=== PATIENT | female | born 1995 | race Caucasian/White ===

== ENCOUNTER 2018-04-17 11:00 | Inpatient (IN) | payer OTHER ==
[2018-04-17] MEDS ORDERED: SODIUM PHOSPHATE/NA BIPHOS 133 ML ENEMA RC ONE (12:45)
[2018-04-17] MEDS ORDERED: AMPICILLIN - 2 GM in SODIUM CHLORIDE 100 ML IVPB ONE (14:35)
[2018-04-17] MEDS ORDERED: AMPICILLIN SODIUM 2 GM VIAL ONE (14:39)
[2018-04-17 15:12] VITALS: BMI 33.3
[2018-04-17 15:44] LABS: BASO % 0.2 % (0-2.0); EOS % 0.4 % (0-4.5); HEMATOCRIT 31.4 % (32.4-45.2); HEMOGLOBIN 9.8 GM/dL (10.7-15.3); LYMPH % 13.7 % (8-40); MCH 22.1 pg (25.7-33.7); MCHC 31.2 g/dl (32.0-36.0); MEAN CELL VOLUME 70.7 fl (80-96); MEAN PLT VOLUME 8.9 fl (7.5-11.1); NEUT % 79.7 % (42.8-82.8); PLATELET COUNT 216 K/MM3 (134-434); RBC 4.45 M/mm3 (3.60-5.2); RDW 20.3 % (11.6-15.6); WHITE BLOOD COUNT 9.6 K/mm3 (4.0-10.0)
[2018-04-17 16:01] LABS: ANION GAP 13 MMOL/L (8-16); BLOOD UREA NITROGEN 8 mg/dL (7-18); CALCIUM 8.6 mg/dL (8.5-10.1); CHLORIDE 105 mmol/L (98-107); CO2 21 mmol/L (21-32); CREATININE 0.4 mg/dL (0.55-1.3); GLUCOSE,RANDOM 85 mg/dL (74-106); POTASSIUM 3.6 mmol/L (3.5-5.1); SODIUM 139 mmol/L (136-145)
[2018-04-17 16:04] LABS: INR 0.93 (0.83-1.09)
[2018-04-17 16:07] LABS: ACTIVATED PTT 25.1 SECONDS (25.2-36.5)
[2018-04-17] MEDS ORDERED: DEXTROSE 5%-LACTATED RINGERS 1,000 ML IV SCH (17:00)
[2018-04-17] MEDS ORDERED: PROMETHAZINE HCL 25 MG/1 ML VIAL ONE (17:20)
[2018-04-17] MEDS ORDERED: BUTORPHANOL TARTRATE 1 MG/ML VIAL ONE ×2 (17:20)
--- NOTE | 2018-04-17 17:31 | HP ---
Past Medical History - Admission Chief Complaint: contractions History of Present Illness: 23yo LMP 06/25/17 EDC 04/17/18 by 10 week u/s SIUP at 40 weeks presents with c/o ctx. PNC at [address] uncomplicated Pt A+/RI/Hep B sag negative/quantiferon negative/HIV negative/GBS positive History Source: Patient Limitations to Obtaining History: No Limitations - Past Medical History SR. CONSULTANT: No: Alzheimer's, CVA, Dementia, Migraine, Multiple Sclerosis, Peripheral Neuropathy, Parkinson's, Seizure, Syncope, TIA, Vertigo, Other Cardiovascular: No: AFIB, Aneurysm, Aortic Insufficiency, Aortic Stenosis, CAD, CHF, Deep Vein Thrombosis, HTN, Hyperlipdemia, NV, Mitral Insufficiency, Mitral Stenosis, Murmur, Pulmonary Hypertension, Other Pulmonary: No: Asthma, Bronchitis, Cancer, COPD, O2 Dependent, Pneumonia, Previously Intubated, Pulmonary Embolus, Pulmonary Fibrosis, Sleep Apnea, Other Gastrointestinal: No: Ascites, Cancer, Constipation, Crohn's Disease, Diverticulitis, Diverticulosis, Esophageal Varices, Gastritis, GERD, GI Bleed, Hemorrhoids, Hiatal Hernia, Inflamatory Bowel Disease, Irritable Bowel Disease, Pancreatitis, Peptic Ulcer Disease, Ulcerative Colitis, Other Hepatobiliary: No: Cirrhosis, Cholelithiasis, Cholecystitis, Choledocholithiasis , Hepatitis A, Hepatitis B, Hepatitis C, Other Renal/: No: Renal Failure, Renal Inusuff, BPH, Cancer, Hematuria, Hemodialysis , Neurogenic Bladder, Renal Calculi, UTI, Other ...: 1 ...Para: 0 ...Term: 0 ...: 0 ...Spon : 0 ...Induced : 0 ...Multiple Gestation: 0 ...LMP: 06/25/17 ... Weeks Gestation by Dates: 40 ...EDC by Sono: 04/17/18 Heme/Onc: Yes: Anemia - Past Surgical History Past Surgical History: Yes: None Hx Myomectomy: No Hx Transabdominal Cerclage: No - Smoking History Smoking history: Never smoked Have you smoked in the past 12 months: No - Alcohol/Substance Use Hx Alcohol Use: No Home Medications - Allergies Allergies/Adverse Reactions: Allergies Allergy/AdvReac Type Severity Reaction Status Date / Time No Known Allergies Allergy Verified 04/17/18 12:06 - Home Medications Home Medications: Ambulatory Orders Ferrous Sulfate 325 mg PO DAILY 02/21/18 Family Disease History - Family Disease History Family History: Unremarkable Review of Systems - Review of Systems Constitutional: reports: No Symptoms Eyes: reports: No Symptoms HENT: reports: No Symptoms Neck: reports: No Symptoms Cardiovascular: reports: No Symptoms Respiratory: reports: No Symptoms Gastrointestinal: reports: No Symptoms Genitourinary: reports: Pain Breasts: reports: No Symptoms Reported Musculoskeletal: reports: No Symptoms Integumentary: reports: No Symptoms Neurological: reports: No Symptoms Endocrine: reports: No Symptoms Hematology/Lymphatic: reports: No Symptoms Psychiatric: reports: No Symptoms Physical Exam - Maternity Vital Signs: Vital Signs Temperature 98.2 F 04/17/18 17:07 Pulse Rate 95 H 04/17/18 17:07 Respiratory Rate 18 04/17/18 17:07 Blood Pressure 123/65 04/17/18 17:07 O2 Sat by Pulse Oximetry (%) Constitutional: Yes: Well Nourished, No Distress, Calm Eyes: Yes: WNL, Conjunctiva Clear, EOM Intact HENT: Yes: WNL, Atraumatic, Normocephalic Neck: Yes: WNL, Supple, Trachea Midline Cardiovascular: Yes: WNL, Regular Rate and Rhythm Breast(s): Yes: WNL - Abdominal Exam/OB Fundal Height: 40 Number of Fetuses: Single Presentation: Vertex Contractions: Yes Regularity: Regular Intensity: Mild/Mod Monitor Mode: External Heart Rate (range): 125 mod priscilla +accels no decels Category: I Accelerations: Uniform Decelerations: None - Vaginal Exam/OB Vaginal Bleediing: No Dilatation (cm): 3 Effacement (%): 80 Amniotic Membrane Status: Intact Presentation: Vertex/Position - Physical Exam Musculoskeletal: Yes: WNL Extremities: Yes: WNL Integumentary: Yes: WNL ...Motor Strength: WNL Psychiatric: Yes: WNL - Labs Lab Results: CBC, BMP 04/17/18 15:20 04/17/18 15:20 Hemorrhage Risk Assessment - Risk Factors Medium Risk Factors: Yes: None High Risk Factors: Yes: None Risk Score: 1 Risk Level: Medium Risk Problem List - Problems (1) Spontaneous onset of labor Assessment/Plan: 23yo at 40 weeks in early labor, GBS positive, EFW 8 1/2lbs admit to labor and delivery pain management as needed penicillin for gbs prophylaxis expectant management for now; early labor at term; Dr. Santiago Code(s): [id number] -
[2018-04-17] MEDS ORDERED: BUTORPHANOL TARTRATE 1 MG/ML VIAL IVPB ONE (17:35)
[2018-04-17] MEDS ORDERED: PROMETHAZINE HCL 25 MG/1 ML VIAL IVPUSH ONE (17:35)
[2018-04-17] MEDS ORDERED: ELECTROLYTE-148 SOLN 1,000 ML IV SCH (17:45)
[2018-04-17] MEDS ORDERED: AMPICILLIN SODIUM 1 GM VIAL ONE ×2 (18:40→22:22)
[2018-04-17] MEDS: AMPICILLIN - 1 GM in SODIUM CHLORIDE 100 ML IVPB SCH ×2 (18:42→22:30)
[2018-04-18] MEDS ORDERED: AMPICILLIN SODIUM 1 GM VIAL ONE ×2 (02:16→06:32)
[2018-04-18] MEDS: AMPICILLIN - 1 GM in SODIUM CHLORIDE 100 ML IVPB SCH ×2 (02:30→06:30)
[2018-04-18] MEDS ORDERED: BUTORPHANOL TARTRATE 1 MG/ML VIAL IVPUSH ONE (03:00)
[2018-04-18] MEDS ORDERED: PROMETHAZINE HCL 25 MG/1 ML VIAL IVPUSH ONE (03:00)
[2018-04-18] MEDS ORDERED: OXYTOCIN 30 UNITS in 0.9% NS 30 UNIT/500 ML INFUS.BAG IVPB ONE (03:35)
[2018-04-18] MEDS ORDERED: OXYTOCIN 30 UNITS in 0.9% NS 30 UNIT/500 ML INFUS.BAG IVPB SCH (04:30)
[2018-04-18 07:18] VITALS: TEMP 98.8
[2018-04-18 08:01] VITALS: BP 105/55; PULSE 94
--- NOTE | 2018-04-18 08:15 | PN ---
Progress Note, Labor Vaginal Exam #1 Labor Exam Time: 07:40 Heart Rate (range): Cat 1 Dilatation: 4 Effacement (%): 80 Amniotic Membrane Status: Intact Presentation: Vertex/Position Station: -2 Remarks: patient admitted jn latent labor. Over the course of 15 hours, she has made no significant progress or transition into active labor. Her FHT has remained Category 1 throughout. She has received 3-4 hours of pitocin, with progress from 3cm to 4cm. Will discharge the patient home to allow for more time for her to transition into active labor and have a better chance of vaginal delivery. she has close follow up in the office within 48 hours.
[2018-04-18] MEDS ORDERED: AMPICILLIN - 1 GM in SODIUM CHLORIDE 100 ML IVPB SCH (10:30)
== END 2018-04-18 09:35 | disposition home or self-care (01) | DRG 566 ==
LOC: JDEL 11:00 → JLDR 14:35
PROVIDERS: ADMIT Obstetrics & Gynecology; ATTEND Obstetrics & Gynecology
DX: O48.0 Post-term pregnancy (principal); Z3A.40 40 weeks gestation of pregnancy; O99.824 Streptococcus B carrier state complicating childbirth
CPT/HCPCS: 36415; 80048; 85025; 85610; 85730; 86593; 86850; 86900; 86901

== ENCOUNTER 2018-04-22 09:35 | Inpatient (IN) | payer OTHER ==
[2018-04-22] MEDS ORDERED: LACTATED RINGERS SOLUTION 1,000 ML/1,000 ML INFUS.BAG IV STA (12:48)
--- NOTE | 2018-04-24 18:33 | HP ---
Past Medical History - Admission Chief Complaint: IOL, postdates History of Present Illness: 23yo @ 41.0wks here for IOL for postdates Here with ctx still. No VB/LOF. +FM. Seen here last week, admitted for latent labor. Received Amp for GBS+ and made no progress even on pitocin after 15 hours; then returned 3 days ago with ctx, 4cm and made no progress after one hour of monitoring. 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: No: Alzheimer's, CVA, Dementia, Migraine, Multiple Sclerosis, Peripheral Neuropathy, Parkinson's, Seizure, Syncope, TIA, Vertigo, Other Cardiovascular: No: AFIB, Aneurysm, Aortic Insufficiency, Aortic Stenosis, CAD, CHF, Deep Vein Thrombosis, HTN, Hyperlipdemia, HI, Mitral Insufficiency, Mitral Stenosis, Murmur, Pulmonary Hypertension, Other Pulmonary: No: Asthma, Bronchitis, Cancer, COPD, O2 Dependent, Pneumonia, Previously Intubated, Pulmonary Embolus, Pulmonary Fibrosis, Sleep Apnea, Other Gastrointestinal: No: Ascites, Cancer, Constipation, Crohn's Disease, Diverticulitis, Diverticulosis, Esophageal Varices, Gastritis, GERD, GI Bleed, Hemorrhoids, Hiatal Hernia, Inflamatory Bowel Disease, Irritable Bowel Disease, Pancreatitis, Peptic Ulcer Disease, Ulcerative Colitis, Other Hepatobiliary: No: Cirrhosis, Cholelithiasis, Cholecystitis, Choledocholithiasis , Hepatitis A, Hepatitis B, Hepatitis C, Other Renal/: No: Renal Failure, Renal Inusuff, BPH, Cancer, Hematuria, Hemodialysis , Neurogenic Bladder, Renal Calculi, UTI, Other Reproductive: No: Ectopic , Endometriosis, Fibroids, PID, Polycystic Ovary Syndrome, Postmenopausal, Other ...: 1 ...Para: 0 ...Term: 0 ...: 0 ...Spon : 0 ...Induced : 0 ...LMP: 06/25/17 ... Weeks Gestation by Dates: 43.0 ...EDC by Dates: 04/01/18 ...EDC by Sono: 04/17/18 Heme/Onc: Yes: Anemia. No: B12 Deficiency, Bleeding Disorder, Cancer, Current Chemotherapy, Current Radiation Therapy, Hemochromatosis, Hypercoaguable State, Myeloproliferative Synd, Sickle Cell Disease, Sickle Cell Trait, Thrombocytopenia, Other Infectious Disease: No: AIDS, C-Diff, Herpes Zoster, HIV, MRSA, STD's, Tuberculosis, VREF, Other Psych: No: Addictions, Anxiety, Bipolar, Depression, Panic, Psychosis, Schizophrenia, Other - Past Surgical History Past Surgical History: Yes: None. No: AAA Repair, AICD, Amputation, Appendectomy, Arthrosocopy, AV Fistula/Graft, Bariatric Surgery, Breast Biopsy, Bypass, CABG, Carotid Endarterectomy, Cataract Removal, Cholecystectomy, Colectomy, Colonoscopy, Colostomy, Craniotomy, , Cystectomy, Hernia Repair, Hysterectomy, Ileal Conduit, Ileosotomy, Joint Replacement, Kidney Transplant, Laminectomy, Liver Transplant, Mastectomy, Nephrectomy, Oopherectomy , Orchiectomy, Permanent Pacemaker, Prostatectomy, Splenectomy, Stent, Thoracotomy, TURP, Tonsillectomy, Tubal Ligation, Upper Endoscopy, Valve Replacement, Vasectomy, Vein Stripping/Ligation Hx Myomectomy: No Hx Transabdominal Cerclage: No - Advance Directives Advance Directives: No: Living Will, Health Care Proxy, DNR, Organ Donor, Tissue Donor, MOLST - Smoking History Smoking history: Never smoked Have you smoked in the past 12 months: No - Alcohol/Substance Use Hx Alcohol Use: No History of Substance Use: reports: None - Social History Usual Living Arrangement: Yes: With Spouse History of Recent Travel: No Home Medications - Allergies Allergies/Adverse Reactions: Allergies Allergy/AdvReac Type Severity Reaction Status Date / Time No Known Allergies Allergy Verified 04/24/18 18:27 - Home Medications Home Medications: Ambulatory Orders Ferrous Sulfate 325 mg PO DAILY 02/21/18 Physical Exam - Maternity Vital Signs: Vital Signs Temperature 98.1 F 04/22/18 13:21 Pulse Rate 80 04/22/18 13:21 Respiratory Rate 18 04/22/18 13:21 Blood Pressure 127/74 04/22/18 13:21 O2 Sat by Pulse Oximetry (%) Constitutional: Yes: Well Nourished, No Distress, Calm Eyes: Yes: WNL, Conjunctiva Clear, EOM Intact Cardiovascular: Yes: WNL, Regular Rate and Rhythm Breast(s): Yes: WNL - Abdominal Exam/OB Contractions: Yes Regularity: Regular Intensity: Mild Monitor Mode: External Category: I Decelerations: None - Vaginal Exam/OB Vaginal Bleediing: No Speculum Exam: No Dilatation (cm): 40 Effacement (%): 100 Amniotic Membrane Status: Intact Presentation: Vertex/Position Station: -2 - Physical Exam Edema: No Problem List - Problems (1) Uterine contractions Code(s): [id number] - Assessment/Plan 23yo @ 41.0wks here for IOL for postdates Admit to L&D NPO, IVF Amp for GBS positive; did receive course last week when admitted AROM Cat 1 tracing Low suspicion for successful given EFW 9.5lbs and maternal short stature, have discussed the potential for and it's associated risk. Consents signed for and PLTCS Anticipate delivery Danelle Gann MD
[2018-04-24 18:42] VITALS: BMI 34.3
[2018-04-24] MEDS ORDERED: AMPICILLIN - 2 GM in SODIUM CHLORIDE 100 ML IVPB ONE (18:44)
[2018-04-24] MEDS ORDERED: ELECTROLYTE-148 SOLN 1,000 ML IV SCH (18:45)
[2018-04-24] MEDS ORDERED: LACTATED RINGERS SOLUTION 1,000 ML/1,000 ML INFUS.BAG IV SCH (18:45)
--- NOTE | 2018-04-24 19:10 | PN ---
Progress Note, Labor Vaginal Exam #1 Labor Exam Date: 04/24/18 Labor Exam Time: 19:05 Heart Rate (range): Cat I Dilatation: 5 Effacement (%): 100 Amniotic Membrane Status: Ruptured Presentation: Vertex/Position Station: -2 Remarks: AROM, clears Cat I tracing Epidural prn pain Danelle Gann MD
[2018-04-24 19:33] LABS: BASO % 0.5 % (0-2.0); EOS % 0.7 % (0-4.5); HEMATOCRIT 30.5 % (32.4-45.2); HEMOGLOBIN 10.2 GM/dL (10.7-15.3); LYMPH % 17.9 % (8-40); MCH 23.4 pg (25.7-33.7); MCHC 33.5 g/dl (32.0-36.0); MEAN PLT VOLUME 9.4 fl (7.5-11.1); MONO % 7.4 % (3.8-10.2); NEUT % 73.5 % (42.8-82.8); PLATELET COUNT 203 K/MM3 (134-434); RBC 4.37 M/mm3 (3.60-5.2); RDW 20.3 % (11.6-15.6); WHITE BLOOD COUNT 8.8 K/mm3 (4.0-10.0)
[2018-04-24 19:43] LABS: INR 0.96 (0.83-1.09); PROTHROMBIN TIME (PATIENT) 11.3 SEC (9.7-13.0)
[2018-04-24] MEDS: AMPICILLIN - 1 GM in SODIUM CHLORIDE 100 ML IVPB SCH (21:30)
[2018-04-24] MEDS ORDERED: NALOXONE HCL 0.4 MG/ML VIAL IVPUSH PRN (21:30)
[2018-04-24] MEDS ORDERED: FENTANYL/BUPIVACAINE/NS/PF - PCEA - 50 ML DISP.SYRIN EP SCH (21:30)
--- NOTE | 2018-04-25 00:48 | PN ---
Progress Note, Labor Vaginal Exam #2 Labor Exam Date: 04/25/18 Labor Exam Time: 00:35 Heart Rate (range): Cat I Dilatation: 10 Effacement (%): 100 Amniotic Membrane Status: Ruptured Presentation: Vertex/Position Station: +1 Remarks: Feeling some urge to push. Starting to push
[2018-04-25] MEDS: OXYTOCIN 20 UNITS in 0.9% NS 20 UNIT/1,000 ML INFUS.BAG IV SCH ×2 (01:40→11:00)
[2018-04-25] MEDS: METHYLERGONOVINE MALEATE 0.2 MG/1 ML AMP IM PRN ×2 (01:50→19:20)
[2018-04-25] MEDS ORDERED: WITCH HAZEL 50% (TUCKS) 40 PAD/JAR PAD TP PRN (02:06)
[2018-04-25] MEDS ORDERED: BENZOCAINE 28 GM HEMORRHOIDAL OINTMENT TP PRN (02:06)
[2018-04-25] MEDS ORDERED: IBUPROFEN 600 MG TABLET (FP) PO PRN (02:06)
[2018-04-25] MEDS ORDERED: BENZOCAINE 20% 57 GM BOTTLE TP PRN (02:06)
--- NOTE | 2018-04-25 02:06 | PN ---
Delivery - Delivery Vaginal Delivery: Spontaneous Type of Anesthesia: Epidural Episiotomy/Laceration: Midline, 1st degree EBL (cc): 400 Delivery, Single - Stages of Labor Date of Delivery: 04/25/18 Date Placenta Delivered: 04/25/18 Placenta: Yes: Spontaneous - Condition of Infant Seam Rubber/Flake Miller Helper Present: Yes Infant Gender: Female Position: Right, OA - Feeding Plan Initial Plan: Elected not to breastfeed exclusively throughout hospitalization Remarks - Remarks Remarks: of VFI over intact perineum from ETEHL position. Epidural anesthesia. 41weeks gestation. Spontaneous delivery of anterior shoulder and placed on maternal abdomen. Cord clamped and cut. Infant handed off. Weight pending. Apgars 9/9. Spontaneous delivery of intact placenta with 3VC. Perineum inspected, first degree laceration repaired with 3-0 vicryl with good hemostasis. With uterine massage, brisk bleeding. Methergine 0.2mg IM given x 1. Continued uterine massage showed improvement with little bleeding thereafter. Perineum inspected again, no bleeding from laceration repaired. EBL 400. Mother and baby doing well. Danelle Gann MD
[2018-04-25] MEDS: ACETAMINOPHEN 325 MG TABLET (FP) PO PRN ×2 (02:50→19:23)
[2018-04-25] MEDS: AMPICILLIN - 1 GM in SODIUM CHLORIDE 100 ML IVPB SCH ×2 (04:49→06:57)
[2018-04-25] MEDS: FERROUS SO4 325 MG TABLET (FP) PO SCH ×2 (09:44→22:14)
[2018-04-25] MEDS: PRENATAL VITAMINS W/ FOLIC ACID TABLET (FP) PO SCH (09:44)
[2018-04-25] MEDS: SENNOSIDES/DOCUSATE COMBO (SENNA PLUS) TABLET (UD) PO PRN (22:14)
--- NOTE | 2018-04-26 07:56 | PN ---
Progress Note (short form) - Note Progress Note: ppd 1, doing well, no c/o , voids ok, no excess vaginal bleeding, no dizziness CBC, BMP 04/24/18 19:10 Last Vital Signs Temp Pulse Resp BP Pulse Ox 98.2 F 90 20 106/58 L 96 04/26/18 00:54 04/26/18 00:54 04/26/18 00:54 04/26/18 00:54 04/25/18 02:25 abdomen soft, no distension, no cva uterus firm, non tender lochia mild impression anemia, asymptomatic, no active vaginal bleeding plan start iron, vit repeat cbc in am if symptomatic may need blood transfusion, CBC, BMP 04/26/18 07:10 ,
[2018-04-26 08:12] LABS: BASO % 0.3 % (0-2.0); EOS % 1.6 % (0-4.5); HEMATOCRIT 22.7 % (32.4-45.2); HEMOGLOBIN 7.1 GM/dL (10.7-15.3); LYMPH % 22.9 % (8-40); MCH 22.2 pg (25.7-33.7); MCHC 31.2 g/dl (32.0-36.0); MONO % 8.4 % (3.8-10.2); NEUT % 66.8 % (42.8-82.8); PLATELET COUNT 154 K/MM3 (134-434); RDW 20.4 % (11.6-15.6); WHITE BLOOD COUNT 8.2 K/mm3 (4.0-10.0)
[2018-04-26] MEDS: PRENATAL VITAMINS W/ FOLIC ACID TABLET (FP) PO SCH (10:00)
[2018-04-26] MEDS: FERROUS SO4 325 MG TABLET (FP) PO SCH ×2 (10:00→21:54)
[2018-04-26] MEDS: SENNOSIDES/DOCUSATE COMBO (SENNA PLUS) TABLET (UD) PO PRN (21:55)
--- NOTE | 2018-04-27 08:00 | PN ---
Post Progress Note - Subjective Subjective: no c/o dizziness voiding without difficulty bm done Post Day: 2 Type of Delivery: Vital Signs: Vital Signs Temperature 98.7 F 04/26/18 22:00 Pulse Rate 98 H 04/26/18 22:00 Respiratory Rate 20 04/26/18 22:00 Blood Pressure 106/63 04/26/18 22:00 O2 Sat by Pulse Oximetry (%) 96 04/25/18 02:25 Breast Exam: Yes: Soft, Other (both bottle & BF ). No: Engorged Uterus: Yes: Fundus Firm, Fundus below umbilicus, Non-tender Lochia: Yes: Rubra Lochia, amount: Moderate Extremities: Yes: Calves non-tender Perineum: Yes: Episiotomy Activity: Ambulating - Labs Labs: CBC WBC 8.2 K/mm3 (4.0-10.0) 04/26/18 07:10 RBC 3.20 M/mm3 (3.60-5.2) L 04/26/18 07:10 Hgb 7.1 GM/dL (10.7-15.3) L 04/26/18 07:10 Hct 22.7 % (32.4-45.2) L D 04/26/18 07:10 MCV 71.0 fl (80-96) L 04/26/18 07:10 MCH 22.2 pg (25.7-33.7) L 04/26/18 07:10 MCHC 31.2 g/dl (32.0-36.0) L 04/26/18 07:10 RDW 20.4 % (11.6-15.6) H 04/26/18 07:10 Plt Count 154 K/MM3 (134-434) D 04/26/18 07:10 MPV 9.0 fl (7.5-11.1) 04/26/18 07:10 Absolute Neuts (auto) 5.5 K/mm3 (1.5-8.0) 04/26/18 07:10 Neutrophils % 66.8 % (42.8-82.8) 04/26/18 07:10 Lymphocytes % 22.9 % (8-40) D 04/26/18 07:10 Monocytes % 8.4 % (3.8-10.2) 04/26/18 07:10 Eosinophils % 1.6 % (0-4.5) D 04/26/18 07:10 Basophils % 0.3 % (0-2.0) 04/26/18 07:10 Nucleated RBC % 0 % (0-0) 04/26/18 07:10 Problem List - Problems (1) Encounter for visit Code(s): Z39.2 - ENCOUNTER FOR ROUTINE FOLLOW-UP (2) Vaginal delivery Code(s): O80 - ENCOUNTER FOR FULL-TERM UNCOMPLICATED DELIVERY (3) Anemia Code(s): D64.9 - ANEMIA, UNSPECIFIED Qualifiers: Anemia type: iron deficiency Assessment/Plan pt hemodynamically stable anemia well compensated . discuss blood transfusion versus conservative po iron & vit, diet therapy r/b/a explained. she declined blood transfusion Discharge today
[2018-04-27 08:05] LABS: BASO % 0.2 % (0-2.0); EOS % 3.7 % (0-4.5); HEMATOCRIT 22.2 % (32.4-45.2); LYMPH % 23.9 % (8-40); MCH 22.3 pg (25.7-33.7); MCHC 31.6 g/dl (32.0-36.0); MEAN CELL VOLUME 70.3 fl (80-96); MEAN PLT VOLUME 8.6 fl (7.5-11.1); MONO % 6.5 % (3.8-10.2); NEUT % 65.7 % (42.8-82.8); PLATELET COUNT 189 K/MM3 (134-434); RBC 3.16 M/mm3 (3.60-5.2); RDW 21.1 % (11.6-15.6); WHITE BLOOD COUNT 9.1 K/mm3 (4.0-10.0)
[2018-04-27 08:30] VITALS: BP 111/72; PULSE 93; TEMP 98.3
[2018-04-27] MEDS: FERROUS SO4 325 MG TABLET (FP) PO SCH (09:24)
[2018-04-27] MEDS: PRENATAL VITAMINS W/ FOLIC ACID TABLET (FP) PO SCH (09:24)
[2018-04-27 11:06] LABS: MACROCYTOSIS 0; PLATELET ESTIMATE NORMAL
[2018-04-27 11:34] LABS: ANISOCYTOSIS 1+
== END 2018-04-27 14:05 | disposition home or self-care (01) | DRG 560 ==
LOC: JDEL 09:35 → JLDR 04-24 17:30 → J3W 04-25 03:50
PROVIDERS: ADMIT Obstetrics & Gynecology; ATTEND Obstetrics & Gynecology
PROC: 0HQ9XZZ Repair Perineum Skin, External Approach (ICD-10-PCS; principal; 2018-04-25)
PROC: 10E0XZZ Delivery of Products of Conception, External Approach (ICD-10-PCS; 2018-04-25)
DX: O48.0 Post-term pregnancy (principal); Z3A.41 41 weeks gestation of pregnancy; O99.02 Anemia complicating childbirth; D64.9 Anemia, unspecified; Z37.0 Single live birth
CPT/HCPCS: 36415; 59025; 59409; 85025; 85610; 86850; 86900; 86901

== ENCOUNTER 2019-07-13 05:58 | Emergency (ER) | payer OTHER ==
[2019-07-13] MEDS ORDERED: DEXAMETHASONE LIQUID 0.5 MG/5 ML PO ONE (07:40)
[2019-07-13] MEDS ORDERED: IBUPROFEN 400 MG TABLET (FP) PO ONE ×2 (07:40→08:08)
[2019-07-13 07:47] VITALS: BMI 29.2
[2019-07-13] MEDS ORDERED: DEXAMETHASONE SOD PHOSPHATE 10 MG/1 ML VIAL ONE (08:07)
--- NOTE | 2019-07-13 08:10 | PDOC ---
History of Present Illness - General Chief Complaint: Sore Throat Stated Complaint: VOMITING,FEVER, SORE THROAT Time Seen by Provider: 07/13/19 07:36 History Source: Patient Exam Limitations: No Limitations - History of Present Illness Initial Comments: 07/13/19 08:10 24-year-old female presents the ED with complaints of headache, sore throat, fever, and myalgias since yesterday. Patient states took no medication and decided come to the ER for further evaluation. Patient denies any recent travel recent sick contacts. Patient denies medical history. Is this a multiple visit Asthma Patient?: No Timing/Duration: reports: yesterday Severity: reports: moderate Possible Cause: Yes: no prior episodes Modifying Factors: improves with: coughing Associated Symptoms: reports: cough, fever/chills, headache, sore throat Past History - Travel Traveled outside of the country in the last 30 days: No Close contact w/someone who was outside of country & ill: No - Past Medical History Allergies/Adverse Reactions: Allergies Allergy/AdvReac Type Severity Reaction Status Date / Time No Known Allergies Allergy Verified 07/13/19 07:47 Home Medications: Ambulatory Orders Ferrous Sulfate 325 mg PO DAILY 02/21/18 Vits96/Iron Fum/Folic [ Tablet] 1 each PO DAILY 04/24/18 Acetaminophen [Tylenol .Regular Strength -] 650 mg PO Q3H PRN tablet 04/27/18 Benzocaine [Americaine 20% Thelma -] 1 spray TP PRN PRN bottle 04/27/18 Ferrous Sulfate [Feosol] 325 mg PO BID #60 tab 04/27/18 Ibuprofen [Motrin -] 200 mg PO Q4H PRN tablet 04/27/18 Vitamins (Sjr) - 1 tab PO DAILY #30 tablet 04/27/18 Sennosides/Docusate Sodium [Pericolace -] 2 tablet PO HS PRN #60 tablet Witch Ching 50% (Tucks) [Tucks Pads -] 1 pad TP PRN PRN pad 04/27/18 Amoxicillin - [Amoxicillin 500mg Capsule -] 500 mg PO BID #20 capsule 07/13/19 Asthma: No Cancer: No Cardiac Disorders: No COPD: No Diabetes: No HTN: No Seizures: No Thyroid Disease: No - Immunization History Immunization Up to Date: Yes - Psycho Social/Smoking Cessation Hx Smoking History: Never smoked Have you smoked in the past 12 months: No Hx Alcohol Use: No Drug/Substance Use Hx: No Hx Substance Use Treatment: No Patient Lives Alone: No Lives with/in: spouse/SO Review of Systems - Review of Systems Able to Perform ROS?: No Constitutional: Yes: Fever HEENTM: Yes: Nose Congestion, Throat Pain Respiratory: Yes: Cough Cardiac (ROS): No: Symptoms Reported ABD/GI: No: Symptoms Reported : No: Symptoms Reported Musculoskeletal: Yes: Joint Pain, Muscle Pain Integumentary: No: Symptoms Reported Neurological: Yes: Headache *Physical Exam - Vital Signs Last Vital Signs Temp Pulse Resp BP Pulse Ox 98.9 F 123 H 18 110/65 97 07/13/19 07:45 07/13/19 07:45 07/13/19 07:45 07/13/19 07:45 07/13/19 07:45 - Physical Exam General Appearance: Yes: Nourished, Appropriately Dressed. No: Apparent Distress HEENT: positive: Pharyngeal Erythema (Beefy soft palate with 3+ erythematous left tonsil without exudate. Right tonsil 2+). negative: Pale Conjunctivae Neck: positive: Normal Thyroid Respiratory/Chest: positive: Lungs Clear, Normal Breath Sounds. negative: Respiratory Distress, Accessory Muscle Use Cardiovascular: positive: Regular Rhythm, Tachycardia. negative: Murmur Gastrointestinal/Abdominal: positive: Soft. negative: Tenderness Extremity: positive: Normal Inspection Integumentary: positive: Normal Color, Warm, Moist Neurologic: positive: Motor Strength 5/5 (Ambulatory) Medical Decision Making - Medical Decision Making 07/13/19 08:16 Chief complaint: Sore throat, headache, cough, myalgia, arthralgia and fever since yesterday no meds taken Exam: Patient tachycardic warm to touch despite oral temperature of 98.9, erythematous soft palate with 3+ tonsil to the left Plan: Decadron, Motrin influenza and strep sent 07/13/19 08:42 Laboratory Tests 07/13/19 08:15 Group A Strep Rapid Positive Will revitalize shortly 07/13/19 08:57 Laboratory Tests 07/13/19 08:15 Influenza A (Rapid) Negative Influenza B (Rapid) Negative States feeling better but revitalized and was tachycardic at 116. Patient given 3 glasses of water which he drank without difficulty. We will revitalize shortly. Patient will have prescription sent to pharmacy in the meanwhile Discharge - Discharge Information Problems reviewed: Yes Clinical Impression/Diagnosis: Strep throat Condition: Improved Disposition: HOME - Admission No - Additional Discharge Information Prescriptions: Amoxicillin - [Amoxicillin 500mg Capsule -] 500 mg PO BID #20 capsule - Follow up/Referral Referrals: Nica Dorantes [Primary Care Provider] - - Patient Discharge Instructions Patient Printed Discharge Instructions: DI for Strep Throat Additional Instructions: Please drink plenty of fluids take antibiotics starting today and complete. May take Motrin 400 mg for discomfort - Post Discharge Activity
[2019-07-13 09:28] VITALS: TEMP 98.4
[2019-07-13 10:02] VITALS: BP 102/60; PULSE 104
== END 2019-07-13 10:01 | disposition home or self-care (01) ==
LOC: JER 05:58
DX: J02.0 Streptococcal pharyngitis (principal); B95.0 Streptococcus, group A, as the cause of diseases classified elsewhere
CPT/HCPCS: 87804; 87880; 99281-25

== ENCOUNTER 2020-06-26 12:46 | Emergency (ER) | payer OTHER ==
[2020-06-26 13:18] VITALS: BP 123/87; PULSE 98; TEMP 98.4; BMI 32.2
== END 2020-06-26 14:55 | disposition home or self-care (01) ==
LOC: JER 12:46
DX: U07.1 COVID-19 (principal)
CPT/HCPCS: 71046-TC-FY; 87426; 99284-25

== ENCOUNTER 2020-07-11 15:06 | Emergency (ER) | payer OTHER ==
[2020-07-11 15:34] VITALS: BP 122/80; PULSE 101; TEMP 98.2; BMI 32.2
== END 2020-07-11 18:41 | disposition home or self-care (01) ==
LOC: JER 15:06
DX: R05 Cough (principal); R50.9 Fever, unspecified; Z20.822 Contact with and (suspected) exposure to COVID-19
CPT/HCPCS: 71046-TC-FY; 99284-25; C9803; U0003

== ENCOUNTER 2020-09-10 00:48 | Emergency (ER) | payer OTHER ==
[2020-09-10 01:41] VITALS: BMI 30.9
[2020-09-10] MEDS ORDERED: ACETAMINOPHEN 500 MG TABLET (FP) PO ONE (02:01)
[2020-09-10] MEDS ORDERED: MAG HYDROX/AL HYDROX/SIMETH 30 ML UNIT-DOSE CUP PO ONE (02:01)
[2020-09-10] MEDS ORDERED: METOCLOPRAMIDE HCL INJECTION 10 MG/2 ML VIAL IVPUSH ONE (02:01)
[2020-09-10] MEDS ORDERED: FAMOTIDINE 20 MG/50 ML IVPB 20 MG/50 ML MG IVPB ONE ×2 (02:01→02:13)
[2020-09-10] MEDS ORDERED: ACETAMINOPHEN 325 MG TABLET (FP) ONE (02:13)
[2020-09-10] MEDS ORDERED: MAG HYDROX/AL HYDROX/SIMETH 30 ML UNIT-DOSE CUP ONE (02:13)
[2020-09-10] MEDS ORDERED: METOCLOPRAMIDE HCL INJECTION 10 MG/2 ML VIAL ONE (02:13)
[2020-09-10] MEDS ORDERED: SODIUM CHLORIDE 1,000 ML IV STA (02:43)
[2020-09-10 02:50] LABS: BASO % 0.6 % (0-2.0); EOS % 1.1 % (0-4.5); LYMPH % 18.4 % (8-40); MCHC 33.4 g/dl (32.0-36.0); MEAN CELL VOLUME 80.8 fl (80-96); MEAN PLT VOLUME 9.5 fl (7.5-11.1); NEUT % 73.9 % (42.8-82.8); PLATELET COUNT 230 K/MM3 (134-434); RBC 4.83 M/mm3 (3.60-5.2); RDW 14.4 % (11.6-15.6)
[2020-09-10 03:18] LABS: ALBUMIN 4.1 g/dl (3.4-5.0); BILIRUBIN,TOTAL 0.4 mg/dL (0.2-1); BLOOD UREA NITROGEN 9.3 mg/dL (7-18); CALCIUM 9.6 mg/dL (8.5-10.1); CREATININE 0.7 mg/dL (0.55-1.3); POTASSIUM 3.7 mmol/L (3.5-5.1); TOT PROT 8.7 g/dl (6.4-8.2)
[2020-09-10 03:20] LABS: EPI CELLS >36 /uL (0-25.1); HYALINE CASTS 3 /uL (0-3.1); URINE APPEARANCE CLOUDY; URINE BACTERIA 2729 /uL (0-1359); URINE BILIRUBIN NEGATIVE (NEGATIVE); URINE COLOR YELLOW; URINE GLUCOSE (UA) NEGATIVE (NEGATIVE); URINE KETONE NEGATIVE (NEGATIVE); URINE LEUK ESTERASE 3+ (NEGATIVE); URINE NITRITE NEGATIVE (NEGATIVE); URINE PROTEIN NEGATIVE (NEGATIVE); URINE RBC 34 /uL (0-23.9); URINE UROBILINOGEN 0.2 mg/dL (0.2-1.0); URINE WBC 247 /uL (0-25.8)
[2020-09-10] MEDS ORDERED: CEPHALEXIN MONOHYDRATE 500 MG CAPSULE (UD) PO ONE (03:42)
[2020-09-10] MEDS ORDERED: CEFTRIAXONE 1 GM in DEXTROSE 5%-WATER - 100 ML IVPB ONE (03:45)
[2020-09-10] MEDS ORDERED: CEFTRIAXONE 1 GM/50 ML BAG ONE (04:00)
[2020-09-10 05:22] VITALS: BP 110/59; PULSE 93; TEMP 98.4
== END 2020-09-10 05:22 | disposition home or self-care (01) ==
LOC: JER 00:48
PROC: 3E03329 Introduction of Other Anti-infective into Peripheral Vein, Percutaneous Approach (ICD-10-PCS; principal; 2020-09-10)
PROC: 3E033GC Introduction of Other Therapeutic Substance into Peripheral Vein, Percutaneous Approach (ICD-10-PCS; 2020-09-10)
PROC: 3E033GC Introduction of Other Therapeutic Substance into Peripheral Vein, Percutaneous Approach (ICD-10-PCS; 2020-09-10)
PROC: 3E0337Z Introduction of Electrolytic and Water Balance Substance into Peripheral Vein, Percutaneous Approach (ICD-10-PCS; 2020-09-10)
DX: N39.0 Urinary tract infection, site not specified (principal)
CPT/HCPCS: 36415; 80053; 81003; 83690; 84703; 85025; 87086; 99284-25; C9803; U0003

== ENCOUNTER 2021-01-20 18:26 | Emergency (ER) | payer OTHER ==
[2021-01-20 18:30] VITALS: BP 113/79; PULSE 89; TEMP 97.9; BMI 30.2
[2021-01-20] MEDS ORDERED: ACETAMINOPHEN 500 MG TABLET (FP) PO ONE (19:28)
[2021-01-20] MEDS ORDERED: ACETAMINOPHEN 500 MG TABLET (FP) ONE (19:50)
== END 2021-01-20 20:57 | disposition home or self-care (01) ==
LOC: JERFT 18:26
DX: J02.9 Acute pharyngitis, unspecified (principal)
CPT/HCPCS: 87880; 99283-25

== ENCOUNTER 2021-04-21 15:17 | Emergency (ER) | payer OTHER ==
[2021-04-21 15:24] VITALS: BP 107/71; PULSE 98; TEMP 97.8; BMI 33.6
[2021-04-21] MEDS ORDERED: ACETAMINOPHEN 325 MG TABLET (FP) PO ONE (16:11)
[2021-04-21] MEDS ORDERED: ACETAMINOPHEN 325 MG TABLET (FP) ONE (16:13)
[2021-04-21 16:25] LABS: HCG,QUALITATIVE URINE Positive
[2021-04-21 16:30] LABS: EPI CELLS 30 /uL (0-25.1); HYALINE CASTS 1 /uL (0-3.1); URINE APPEARANCE CLEAR; URINE BACTERIA 935 /uL (0-1359); URINE BILIRUBIN NEGATIVE (NEGATIVE); URINE COLOR YELLOW; URINE GLUCOSE (UA) NEGATIVE (NEGATIVE); URINE KETONE NEGATIVE (NEGATIVE); URINE LEUK ESTERASE TRACE (NEGATIVE); URINE NITRITE NEGATIVE (NEGATIVE); URINE PROTEIN NEGATIVE (NEGATIVE); URINE RBC 26 /uL (0-23.9); URINE UROBILINOGEN 0.2 mg/dL (0.2-1.0); URINE WBC 23 /uL (0-25.8)
== END 2021-04-21 18:00 | disposition home or self-care (01) ==
LOC: JER 15:17
DX: O26.891 Other specified pregnancy related conditions, first trimester (principal); R10.9 Unspecified abdominal pain; R51.9 Headache, unspecified; Z3A.01 Less than 8 weeks gestation of pregnancy
CPT/HCPCS: 36415; 76817-TC; 81003; 84702; 84703; 87086; 99284-25

== ENCOUNTER 2021-04-27 15:43 | Emergency (ER) | payer OTHER ==
[2021-04-27 15:47] VITALS: BP 110/73; PULSE 96; TEMP 97; BMI 30.6
[2021-04-27 19:09] LABS: HCG,QUALITATIVE URINE Positive
[2021-04-27 19:12] LABS: EPI CELLS 29 /uL (0-25.1); HYALINE CASTS 3 /uL (0-3.1); PH,URINE 7.5 (5.0-8.0); URINE APPEARANCE CLOUDY; URINE BACTERIA 2704 /uL (0-1359); URINE BILIRUBIN NEGATIVE (NEGATIVE); URINE COLOR YELLOW; URINE GLUCOSE (UA) NEGATIVE (NEGATIVE); URINE KETONE NEGATIVE (NEGATIVE); URINE LEUK ESTERASE 3+ (NEGATIVE); URINE NITRITE NEGATIVE (NEGATIVE); URINE PROTEIN TRACE (NEGATIVE); URINE WBC 339 /uL (0-25.8)
[2021-04-27 20:33] LABS: URINE RBC 37 /uL (0-23.9)
== END 2021-04-27 20:37 | disposition home or self-care (01) ==
LOC: JER 15:43
DX: O23.591 Infection of other part of genital tract in pregnancy, first trimester (principal); Z3A.01 Less than 8 weeks gestation of pregnancy
CPT/HCPCS: 81003; 84703; 87086; 99283-25

== ENCOUNTER 2021-07-23 16:22 | Emergency (ER) | payer OTHER ==
[2021-07-23 16:28] VITALS: BP 117/73; PULSE 97; TEMP 97.8; BMI 32.8
[2021-07-23 18:40] LABS: BASO % 0.2 % (0-2.0); EOS % 1.7 % (0-4.5); HEMATOCRIT 35.9 % (32.4-45.2); HEMOGLOBIN 12.4 GM/dL (10.7-15.3); LYMPH % 25.8 % (8-40); MCH 27.8 pg (25.7-33.7); MCHC 34.4 g/dl (32.0-36.0); MEAN CELL VOLUME 80.6 fl (80-96); MEAN PLT VOLUME 8.5 fl (7.5-11.1); MONO % 7.4 % (3.8-10.2); NEUT % 64.9 % (42.8-82.8); PLATELET COUNT 229 10^3/uL (134-434); RBC 4.45 M/mm3 (3.60-5.2); RDW 14.5 % (11.6-15.6); WHITE BLOOD COUNT 8.1 K/mm3 (4.0-10.0)
[2021-07-23 19:05] LABS: CALCIUM 9.5 mg/dL (8.5-10.1)
[2021-07-23 19:06] LABS: ALBUMIN 3.4 g/dl (3.4-5.0)
[2021-07-23 19:08] LABS: CREATININE 0.3 mg/dL (0.55-1.3)
[2021-07-23 19:10] LABS: BILIRUBIN,TOTAL 0.2 mg/dL (0.2-1); TOT PROT 7.5 g/dl (6.4-8.2)
[2021-07-23 19:12] LABS: EPI CELLS 26 /uL (0-25.1); HYALINE CASTS 1 /uL (0-3.1); URINE APPEARANCE CLEAR; URINE BACTERIA 749 /uL (0-1359); URINE BILIRUBIN NEGATIVE (NEGATIVE); URINE COLOR YELLOW; URINE GLUCOSE (UA) NEGATIVE (NEGATIVE); URINE KETONE NEGATIVE (NEGATIVE); URINE LEUK ESTERASE 3+ (NEGATIVE); URINE NITRITE NEGATIVE (NEGATIVE); URINE PROTEIN NEGATIVE (NEGATIVE); URINE RBC 6 /uL (0-23.9); URINE UROBILINOGEN 0.2 mg/dL (0.2-1.0); URINE WBC 69 /uL (0-25.8)
[2021-07-23 19:18] LABS: INR 0.98 (0.83-1.09); PROTHROMBIN TIME (PATIENT) 11.3 SEC (9.7-13.0)
[2021-07-23 19:21] LABS: ACTIVATED PTT 28.5 SECONDS (25.2-36.5)
== END 2021-07-23 21:28 | disposition home or self-care (01) ==
LOC: JER 16:22
DX: O23.42 Unspecified infection of urinary tract in pregnancy, second trimester (principal); Z3A.18 18 weeks gestation of pregnancy
CPT/HCPCS: 36415; 76801-TC; 80053; 81003; 84702; 85025; 85610; 85730; 86850; 86900; 86901; 87086; 87491; 87591; 99284-25

== ENCOUNTER 2021-12-19 11:15 | Inpatient (IN) | payer OTHER ==
[2021-12-19 12:39] VITALS: BMI 36.8
[2021-12-19] MEDS ORDERED: PROMETHAZINE HCL 25 MG/1 ML VIAL IVPUSH ONE (13:24)
[2021-12-19] MEDS ORDERED: BUTORPHANOL TARTRATE 1 MG/ML VIAL IVPB ONE (13:24)
[2021-12-19] MEDS ORDERED: SODIUM PHOSPHATE/NA BIPHOS 133 ML ENEMA RC ONE (13:27)
[2021-12-19] MEDS ORDERED: DEXTROSE 5%-LACTATED RINGERS 1,000 ML IV SCH (13:30)
[2021-12-19] MEDS ORDERED: DINOPROSTONE 10 MG VAGINAL SUPPOSITORY VG ONE (13:30)
[2021-12-19] MEDS ORDERED: BUTORPHANOL TARTRATE 2 MG/ML VIAL ONE (23:04)
[2021-12-19] MEDS ORDERED: PROMETHAZINE HCL 25 MG/1 ML VIAL ONE (23:04)
[2021-12-20] MEDS ORDERED: OXYTOCIN 30 UNITS in 0.9% NS 30 UNIT/500 ML INFUS.BAG IVPB SCH (02:30)
[2021-12-20] MEDS ORDERED: OXYTOCIN 30 UNITS in 0.9% NS 30 UNIT/500 ML INFUS.BAG IVPB ONE (04:02)
[2021-12-20] MEDS ORDERED: FENTANYL/BUPIVACAINE/NS/PF - PCEA - 50 ML DISP.SYRIN EP ONE ×3 (09:05→17:22)
[2021-12-20] MEDS ORDERED: NALOXONE HCL 0.4 MG/ML VIAL IVPUSH PRN (09:05)
[2021-12-20] MEDS ORDERED: FENTANYL/BUPIVACAINE/NS/PF - PCEA - 50 ML DISP.SYRIN EP SCH (09:15)
[2021-12-20] MEDS ORDERED: ELECTROLYTE-148 SOLN 1,000 ML IV SCH (10:30)
[2021-12-20] MEDS ORDERED: LIDOCAINE HCL 1% PRESERVATIVE FREE - 30ML VIAL ONE (17:06)
[2021-12-20] MEDS ORDERED: OXYTOCIN 20 UNITS in 0.9% NS 20 UNIT/1,000 ML INFUS.BAG IV ONE (17:06)
[2021-12-20] MEDS ORDERED: OXYTOCIN 20 UNITS in 0.9% NS 20 UNIT/1,000 ML INFUS.BAG IV SCH (17:35)
[2021-12-20] MEDS ORDERED: METHYLERGONOVINE MALEATE 0.2 MG/1 ML AMP IM PRN (17:40)
[2021-12-20 18:20] LABS: CORD BASE EXCESS -5.8 mmol/L (0-2); CORD HCO3 20.6 mmHg (20-29); CORD PCO2 43.3 mmHg (30-78); CORD pH 7.295 (7.14-7.44)
[2021-12-20 18:21] LABS: CORD BASE EXCESS -7.6 mmol/L (0-2); CORD HCO3 22.2 mmHg (20-29); CORD PCO2 62.7 mmHg (30-78); CORD pH 7.166 (7.14-7.44)
[2021-12-20] MEDS ORDERED: BISACODYL 10 MG SUPP.RECT RC PRN (18:24)
[2021-12-20] MEDS ORDERED: BENZOCAINE 28 GM HEMORRHOIDAL OINTMENT TP PRN (18:24)
[2021-12-20] MEDS ORDERED: oxyCODONE HCL 5 MG TABLET PO PRN (18:24)
[2021-12-20] MEDS ORDERED: WITCH HAZEL 50% (TUCKS) 40 PAD/JAR PAD TP PRN (18:24)
[2021-12-20] MEDS ORDERED: ACETAMINOPHEN 325 MG TABLET (FP) PO PRN (18:24)
[2021-12-20] MEDS: IBUPROFEN 600 MG TABLET (FP) PO PRN (18:30)
[2021-12-20] MEDS ORDERED: IBUPROFEN 600 MG TABLET (FP) PO ONE (18:32)
[2021-12-20] MEDS: BENZOCAINE 20% 57 GM BOTTLE TP PRN (20:31)
[2021-12-20] MEDS ORDERED: DIPHTH,PERTUSS(ACELL),TET 0.5 ML DISP.SYRIN IM ONE (21:32)
[2021-12-21] MEDS: IBUPROFEN 600 MG TABLET (FP) PO PRN ×3 (00:53→13:59)
[2021-12-21] MEDS: FERROUS SO4 325 MG TABLET (FP) PO SCH ×2 (09:20→17:49)
[2021-12-21] MEDS: PRENATAL VITAMINS W/ FOLIC ACID TABLET (FP) PO SCH (09:20)
[2021-12-21] MEDS ORDERED: DIPHTH,PERTUSS(ACELL),TET 0.5 ML DISP.SYRIN IM ONE (10:00)
[2021-12-21 10:11] LABS: BASO % 0.5 % (0-2.0); EOS % 0.2 % (0-4.5); HEMATOCRIT 25.5 % (32.4-45.2); HEMOGLOBIN 8.6 GM/dL (10.7-15.3); LYMPH % 15.9 % (8-40); MCH 27.3 pg (25.7-33.7); MCHC 33.8 g/dl (32.0-36.0); MEAN PLT VOLUME 10.2 fl (7.5-11.1); MONO % 8.8 % (3.8-10.2); NEUT % 74.6 % (42.8-82.8); PLATELET COUNT 128 10^3/uL (134-434); RBC 3.15 M/mm3 (3.60-5.2); WHITE BLOOD COUNT 9.5 K/mm3 (4.0-10.0)
[2021-12-21] MEDS ORDERED: SENNOSIDES/DOCUSATE COMBO (SENNA PLUS) TABLET (UD) PO PRN (22:00)
[2021-12-21 22:41] VITALS: TEMP 98.3
[2021-12-22] MEDS: IBUPROFEN 600 MG TABLET (FP) PO PRN ×2 (01:50→09:22)
[2021-12-22] MEDS: BENZOCAINE 20% 57 GM BOTTLE TP PRN (06:40)
[2021-12-22] MEDS: FERROUS SO4 325 MG TABLET (FP) PO SCH (09:20)
[2021-12-22] MEDS: PRENATAL VITAMINS W/ FOLIC ACID TABLET (FP) PO SCH (09:21)
[2021-12-22 12:32] VITALS: BP 101/69; PULSE 91
== END 2021-12-22 14:25 | disposition home or self-care (01) | DRG 560 ==
LOC: JLDR 11:15 → J3W 12-20 20:28
PROVIDERS: ADMIT Obstetrics & Gynecology; ATTEND Obstetrics & Gynecology
PROC: 3E0P7VZ Introduction of Hormone into Female Reproductive, Via Natural or Artificial Opening (ICD-10-PCS; 2021-12-19)
PROC: 10E0XZZ Delivery of Products of Conception, External Approach (ICD-10-PCS; principal; 2021-12-20)
PROC: 0W8NXZZ Division of Female Perineum, External Approach (ICD-10-PCS; 2021-12-20)
PROC: 3E033VJ Introduction of Other Hormone into Peripheral Vein, Percutaneous Approach (ICD-10-PCS; 2021-12-20)
DX: O66.0 Obstructed labor due to shoulder dystocia (principal); O36.63X0 Maternal care for excessive fetal growth, third trimester, not applicable or unspecified; O99.214 Obesity complicating childbirth; E66.9 Obesity, unspecified; Z3A.39 39 weeks gestation of pregnancy; Z37.0 Single live birth
CPT/HCPCS: 36415; 36600; 59409; 80053; 82803; 85025; 85610; 86780; 86850; 86900; 86901; 90715; C9803-CS; U0003; U0005